=== PATIENT | female | born 1940 | race Caucasian/White ===

== ENCOUNTER 2024-03-22 15:23 | Emergency (ER) | payer MEDICARE ==
[~2024-03-22] VITALS: Ht 157.5 cm; Wt 59.9 kg
[2024-03-22 17:26] VITALS: BP 120/74; PULSE 68; RESP 18; TEMP 97.7; O2SAT 97
== END 2024-03-22 17:28 | disposition home or self-care (01) ==
LOC: ER 15:23
DX: U07.1 COVID-19 (principal)
CPT/HCPCS: 71045; 99283